=== PATIENT | male | born 1990 | race Caucasian/White ===

== ENCOUNTER 2016-12-09 13:16 | Day surgery (SDC) | payer OTHER ==
--- NOTE | 2016-12-07 11:42 | RADIOLOGY REPORT (SQ) ---
EXAM DESCRIPTION: CHEST PA/LATERAL COMPLETED DATE/TIME: 12/07/2016 11:25 am REASON FOR STUDY: PRE OP COMPARISON: None. EXAM PARAMETERS: NUMBER OF VIEWS: two views TECHNIQUE: Digital Frontal and Lateral radiographic views of the chest acquired. RADIATION DOSE: NA LIMITATIONS: none FINDINGS: LUNGS AND PLEURA: No opacities, masses or pneumothorax. No pleural effusion. MEDIASTINUM AND HILAR STRUCTURES: No masses or contour abnormalities. HEART AND VASCULAR STRUCTURES: Heart normal size. No evidence for failure. BONES: No acute findings. HARDWARE: None in the chest. OTHER: No other significant finding. IMPRESSION: NO SIGNIFICANT RADIOGRAPHIC FINDING IN THE CHEST. TECHNICAL DOCUMENTATION: JOB ID: [id number] [employer]- All Rights Reserved
[2016-12-07 11:49] LABS: ABSOLUTE BASOPHILS # (AUTO) 0.1 10^3/uL (0.0-0.2); ABSOLUTE EOSINOPHILS # (AUTO) 0.9 10^3/uL (0.0-0.6); ABSOLUTE LYMPHOCYTES (AUTO) 3.6 10^3/uL (0.5-4.7); ABSOLUTE MONOCYTES (AUTO) 1.1 10^3/uL (0.1-1.4); ABSOLUTE NEUT (AUTO) 6.2 10^3/uL (1.7-8.2); BASOPHILS % (AUTO) 0.8 % (0-2); EOSINOPHILS % (AUTO) 7.9 % (0-6); HEMATOCRIT 50.9 % (37.9-51.0); HEMOGLOBIN 16.8 g/dL (13.5-17.0); HGB HCT DIFFERENCE -0.5; LYMPHOCYTES % (AUTO) 29.8 % (13-45); MEAN CORPUSCULAR HEMOGLOBIN 30.6 pg (27.0-33.4); MEAN CORPUSCULAR VOLUME 93 fl (80-97); MONOCYTES % (AUTO) 9.5 % (3-13); RED CELL DISTRIBUTION WIDTH 13.1 % (11.5-14.0)
[2016-12-07 11:54] LABS: AMORPHOUS SEDIMENT,URINE TRACE /HPF; APPEARANCE,URINE CLOUDY; BILIRUBIN,URINE NEGATIVE (NEGATIVE); GLUCOSE, URINE NEGATIVE (NEGATIVE); KETONES,URINE NEGATIVE (NEGATIVE); LEUKOCYTE ESTERASE,URINE NEGATIVE (NEGATIVE); NITRITE,URINE NEGATIVE (NEGATIVE); PROTEIN,URINE NEGATIVE (NEGATIVE); UROBILINOGEN,URINE NEGATIVE mg/dL (<2.0)
[2016-12-07 12:15] LABS: ANION GAP 15 (5-19); BLOOD UREA NITROGEN 13 mg/dL (7-20); CALCIUM 10.9 mg/dL (8.4-10.2); CARBON DIOXIDE 27 mmol/L (22-30); CHLORIDE 102 mmol/L (98-107); CREATININE RESULT 0.92 mg/dL (0.52-1.25); GLUCOSE 94 mg/dL (75-110); POTASSIUM 5.3 mmol/L (3.6-5.0); SODIUM 143.5 mmol/L (137-145)
--- NOTE | 2016-12-07 16:19 | EKG REPORT ---
SEVERITY:- NORMAL ECG - SINUS RHYTHM : Confirmed by: Ngoc Dempsey MD 07-Dec-2016 16:18:08
[~2016-12-09 13:16] MED LIST: CEFAZOLIN 2 GM/D5W RTU 2 GM/50 ML RTUPB IV PRN; LACTATED RINGERS 1000 ML IV PRN; LIDOCAINE 0.5% INJ-PF (5 MG/ML) 50 ML SDV SUBCUT PRN
[2016-12-09] MEDS ORDERED: BUPIVACAINE HCL 0.5%-EPI 1:200000 INJ/PF 30 ML VIAL ONE (14:34)
[2016-12-09] MEDS ORDERED: PROPOFOL INJ 200 MG/20 ML VIAL IV ONE (16:14)
[2016-12-09] MEDS ORDERED: FENTANYL CITRATE INJ/PF 250 MCG/5 ML AMPULE ONE (16:14)
[2016-12-09] MEDS ORDERED: MORPHINE SULFATE 10 MG/ML INJ ONE (16:14)
[2016-12-09] MEDS ORDERED: MIDAZOLAM 2 MG/2 ML INJ ONE (16:14)
[2016-12-09] MEDS ORDERED: IBUPROFEN INJ 800 MG/8 ML VIAL IV ONE (16:14)
[2016-12-09] MEDS ORDERED: FENTANYL CITRATE INJ/PF 100 MCG/2 ML AMPUL IV PRN ×3 (16:19)
[2016-12-09] MEDS ORDERED: PROMETHAZINE HCL INJ 25 MG/1 ML VIAL IV PRN ×2 (16:19)
[2016-12-09] MEDS ORDERED: MORPHINE SULFATE 10 MG/ML INJ IV PRN (16:19)
[2016-12-09] MEDS ORDERED: OXYCODONE-ACETAMINOPHEN 5-325 MG TABLET PO PRN ×2 (16:19)
[2016-12-09] MEDS ORDERED: MEPERIDINE HCL/PF INJ 25 MG/1 ML DISP.SYRIN IV PRN (16:19)
[2016-12-09] MEDS ORDERED: DIPHENHYDRAMINE HCL 50 MG/ML VIAL IV PRN (16:19)
--- NOTE | 2016-12-09 16:52 | Operative Report ---
Operative Report DATE OF SURGERY: 12/09/16 PREOPERATIVE DIAGNOSIS: Left knee medial and lateral menisci tears POSTOPERATIVE DIAGNOSIS: Left knee medial meniscus tear OPERATION: Left knee arthroscopic partial medial meniscectomy SURGEON: VENICE GARCIA ANESTHESIA: GA TISSUE REMOVED OR ALTERED: Meniscal shaving COMPLICATIONS: None ESTIMATED BLOOD LOSS: 5 mL INTRAOPERATIVE FINDINGS: Posterior horn complex tear medial meniscus PROCEDURE: Patient was brought to the operating room and induced and intubated in supine position. A tourniquet was applied to the left lower extremity. Timeout was done identifying the left knee was the correct site. .25% plain Marcaine was injected into anticipated portal sites. The extremity was elevated and the tourniquet was inflated at 300 mmHg. 11 blade was used to establish the anterolateral portal. Scope was introduced. At this point I established my anteromedial portal. Diagnostic scope was done showing the patient had pristine patellofemoral compartment with no evidence of chondromalacia. I turned my attention to the medial compartment where I noted a degenerative complex tear of the medial meniscus.I used the meniscal biter and 4.0mm shaver to resect majority of the posterior horn of the medial meniscus. Shaver smooth out the edges of the meniscus which gave a good stable construct. I this point redirected my camera to the notch and visualized the anterior cruciate ligament graft which was intact as well as the PCL which showed to be intact. I then placed the extremity in a [id number] and at this point saw the lateral meniscus was intact with no noticeable tears. Popliteal hiatus was intact. Articular cartilage also was pristine with no evidence of chondromalacia or wear. At this point the fluid of the knee was removed and I proceeded to close the 2 portal sites with 3-0 nylon. Tourniquet was let down. The portal sites were covered with Xeroform 4 x 4 dressing and ABD pad followed by a soft roll. I overwrapped it with an Valentino bandage. Drapes were cut and removed. Patient was successfully extubated and sent to PACU in stable condition.
--- NOTE | 2016-12-09 16:55 | PDOC DISCHARGE SUMMARY ---
Discharge Summary (SDC) - Discharge Final Diagnosis: Left knee complex tear of the posterior horn medial meniscus Date of Surgery: 12/09/16 Discharge Date: 12/09/16 Condition: Good Treatment or Instructions: Patient instructed to follow up in 10-14 days. Patient instructed to keep dressing dry clean and intact for 4 days and then allowed to remove. At that point patient can shower and apply Band-Aids as needed. Patient can weight-bear as tolerated and do range of motion exercises as tolerated. Crutches for support and safety. Can wean crutches once stable on his feet. Patient instructed to call the office if patient develops fevers chills redness and drainage from the surgical sites. Prescriptions: Oxycodone HCl/Acetaminophen [Percocet 5-325 mg Tablet] 1 tab PO ASDIR PRN #25 tab PRN Reason: Discharge Diet: As Tolerated Respiratory Treatments at Home: Deep Breathing/Coughing Discharge Activity: Keep Legs Elevated, Slowly Increase Activity, Walk Frequently Adaptive Devices on Discharge: Axillary Crutches - if needed Report the Following to Your Physician Immediately: Shortness of Breath, Vomiting, Increase in Pain, Fever over 101 Degrees, Unusual Bleeding, Redness, Swelling, Drainage-Yellow, Drainage-Powers, Drainage-Green, Drainage-Foul Smelling
[2016-12-09 18:28] VITALS: BP 121/89
[2016-12-09] MEDS ORDERED: LIDOCAINE 2% INJ-PF (20 MG/ML) 10 ML AMPUL ONE (19:29)
[2016-12-09] MEDS ORDERED: GLYCOPYRROLATE INJ 0.4 MG/2 ML VIAL ONE (19:29)
[2016-12-09] MEDS ORDERED: METOCLOPRAMIDE HCL INJ/PF 10 MG/2 ML SDV ONE (19:29)
[2016-12-09] MEDS ORDERED: ONDANSETRON HCL INJ/PF 4 MG/2 ML SDV ONE (19:29)
[2016-12-09] MEDS ORDERED: SUCCINYLCHOLINE CHLORIDE INJ 200 MG/10 ML VIAL ONE (19:29)
== END 2016-12-09 18:20 | disposition home or self-care (01) ==
LOC: OROUT 13:16
PROVIDERS: ATTEND Orthopaedic Surgery
PROC: 0SBD4ZZ Excision of Left Knee Joint, Percutaneous Endoscopic Approach (ICD-10-PCS; principal; 2016-12-09 15:30)
DX: S83.232A Complex tear of medial meniscus, current injury, left knee, initial encounter (principal); X58.XXXA Exposure to other specified factors, initial encounter; M25.562 Pain in left knee; F90.9 Attention-deficit hyperactivity disorder, unspecified type; Z79.899 Other long term (current) drug therapy
CPT/HCPCS: 29881; 93005; 36415 ×2; 84132; 85025; 80048; 81001; 71020; 93010; J2250; J3490 ×2; J3010; J2765; J2270; J0330; J2405; J2704; J0690; J1741; 1400

== ENCOUNTER 2018-08-18 19:26 | Emergency (ER) | payer OTHER ==
[2018-08-18 19:44] VITALS: BP 173/70
[2018-08-18] MEDS ORDERED: HYDROCODONE/ACETAMINOPHEN 10-325 MG TABLET PO ONE (20:12)
--- NOTE | 2018-08-18 20:17 | ER Document Report ---
HPI - HPI Patient complains to provider of: Medication refill Time Seen by Provider: 08/18/18 19:56 Pain Level: 4 Context: Patient is a 27-year-old male who had an unknown left shoulder surgery on 1213 down in [place]. States his orthopedic physician was Dr. khan. States he was given a prescription for pain medication at that time. Patient states he has since taken all of those prescription pain medications and continues to be in pain which is why he presents to the emergency room. Patient denies any change or increase in his pain states it has been consistent ever since getting out of surgery. Patient denies any numbness or tingling in the left upper extremity or change in his skin color. Patient states he Tried to call Dr. Stephane Bennett's office with the phone numbers that were given in his discharge paperwork an they received a different recording stating that the office was not open on the weekends. Patient states he was unsure of what to do which is why he presents to the emergency room. - CONSTITUTIONAL Constitutional: DENIES: Fever, Chills - MUSCULOSKELETAL Musculoskeletal: REPORTS: Extremity pain - left shoulder pain Past Medical History - General Information source: Patient - Social History Smoking Status: Unknown if Ever Smoked Family History: Reviewed & Not Pertinent Patient has suicidal ideation: No Patient has homicidal ideation: No - Past Medical History Cardiac Medical History: Denies: Hx Coronary Artery Disease, Hx Heart Attack, Hx Hypertension Pulmonary Medical History: Denies: Hx Asthma, Hx Bronchitis, Hx COPD, Hx Pneumonia Neurological Medical History: Denies: Hx Cerebrovascular Accident, Hx Seizures Renal/ Medical History: Denies: Hx Peritoneal Dialysis Musculoskeletal Medical History: Denies Hx Arthritis Past Surgical History: Reports: Hx Orthopedic Surgery - Immunizations Hx Diphtheria, Pertussis, Tetanus Vaccination: Yes Vertical Provider Document - CONSTITUTIONAL Agree With Documented VS: Yes Notes: GENERAL: Alert, interacts well. No acute distress. HEAD: Normocephalic, atraumatic. EYES: Pupils equal, round, and reactive to light. Extraocular movements intact. ENT: Oral mucosa moist, tongue midline. NECK: Full range of motion. Supple. Trachea midline. LUNGS: Clear to auscultation bilaterally, no wheezes, rales, or rhonchi. No respiratory distress. HEART: Regular rate and rhythm. No murmur ABDOMEN: Soft, non-tender. Non-distended. Bowel sounds present in all 4 quadrants. EXTREMITIES: Moves all 4 extremities spontaneously. No edema, normal radial and dorsalis pedis pulses bilaterally. No cyanosis. Patient's left upper extremity is in a in an extensive splint, I was able to take the patient's shirt off to see has underlying skin. There is no evidence of skin breakdown or cellulitis noted. No obvious swelling. Capillary refill less than 2 seconds distally left upper extremity, PMS equal. BACK: no cervical, thoracic, lumbar midline tenderness. No saddle anesthesia, normal distal neurovascular exam. NEUROLOGICAL: Alert and oriented x3. Normal speech. cranial nerves II through XII grossly intact PSYCH: Normal affect, normal mood. SKIN: Warm, dry, normal turgor. No rashes or lesions noted. - INFECTION CONTROL TRAVEL OUTSIDE OF THE [place] IN LAST 30 DAYS: No Course - Re-evaluation Re-evalutation: 08/18/18 20:15 Patient's pain has been the same since he left his surgery on 08/15/2018. Patient denies any increase in his pain, numbness or tingling in any extremity, change in sensation in the left upper extremity. Discussed at length with patient he needs to follow-up with the surgeon that performed his surgery In order to get his medications refilled. Patient voices understanding and is stable for discharge. Patient denies any use of beta-daron medications, his heart rate has been 60 the entire visit to the emergency department he is non-tachycardic and does not appear to be in any obvious pain. - Vital Signs Vital signs: Temp Pulse Resp BP Pulse Ox 99.0 F 62 13 173/70 H 98 08/18/18 19:43 08/18/18 19:43 08/18/18 19:43 08/18/18 19:43 08/18/18 19:43 Discharge - Discharge Clinical Impression: Medication refill Condition: Stable Disposition: HOME, SELF-CARE Additional Instructions: You have been seen and treated in the emergency department for your left shoulder pain. Please make sure you follow-up with your orthopedic provider. Please try to go on the face to the hospital in order for them to contact an orthopedic provider within the same group as Dr. Khan. Please return to the emergency room for any other concerning symptoms.
== END 2018-08-18 20:26 | disposition home or self-care (01) ==
LOC: ER 19:26
DX: Z76.0 Encounter for issue of repeat prescription (principal)
CPT/HCPCS: 99281